=== PATIENT | female | born 1990 | race Caucasian/White ===

== ENCOUNTER → 2019-08-24 12:37 | Outpatient (BNVA) | payer MEDICAID, SELFPAY | PROVIDERS: Family Provider Family Medicine; Visit Provider Nurse Practitioner | DX: N30.01 Acute cystitis with hematuria (principal); R39.9 Unspecified symptoms and signs involving the genitourinary system | CPT/HCPCS: 81003; 87086 ==

== ENCOUNTER 2019-08-29 17:51 | Emergency (ER) | payer SELFPAY ==
[2019-08-29 17:52] VITALS: PULSE 87; RESP 17; O2SAT 98
[2019-08-29 17:57] VITALS: BP 122/93; PULSE 86; RESP 17; TEMP 36.8; O2SAT 98; BMI 24.7
--- NOTE | 2019-08-29 18:03 | W.ED.FEMALGU ---
HPI - Female Genitourinary General: Chief complaint: Urogenital-Female Stated complaint: Right side pain Time Seen by Provider: 08/29/19 17:57 Source: patient Mode of arrival: ambulatory Limitations: no limitations History of Present Illness: HPI Narrative: Patient is a 29-year-old female who presents to ED today with complaints of right flank pain. Patient states about 5-6 days ago she began noticing dysuria and went to urgent care where she was diagnosed with a UTI. Patient was placed on Macrobid but states she does not feel like she is improving. Patient has not been running fevers. She has not had any vomiting. She has noticed a small amount of blood on her tissue paper after wiping. MD elicited complaint: dysuria and flank pain Onset (ago): day(s) Female Urogenital Radiation: R Flank Consistency: constant Vaginal discharge: none Vaginal bleeding: none Urinary symptoms: Dysuria and Hematuria Exacerbating factors: urination Relieving factors: none Associated symptoms: Reports no associated symptoms; Deny abdominal pain, nausea or syncope Patient : No Review of Systems Const: Denies: fever, chills, body aches, change in appetite, change in weight or fatigue Card: Denies: chest pain, palpitations, irregular heart rhythm, edema, lightheadedness, syncope or pre-syncope Resp: Denies: shortness of breath, productive cough or chest congestion GI: Denies: abdominal pain, nausea, vomiting or diarrhea : Reports: flank pain, painful urination, blood in urine and other (R flank pain); Denies: difficulty urinating, urinary frequency, urinary urgency or urinary hesitancy Skin/Breast: Denies: rash PFS ED PFSH: Social History (Updated 08/24/19 @ 12:39 by Marie Lowe LPN) Smoking and tobacco status: current every day smoker Physical Exam Const: COMMON NORMALS: no apparent distress, average body habitus, oriented x3, no limitations, healthy appearing, alert and well nourished Resp: COMMON NORMALS: normal respiratory effort and clear to auscultation bilaterally AUSCULTATION: clear to auscultation bilaterally Cardio: COMMON NORMALS: regular rate and regular rhythm RATE: regular rate RHYTHM: regular rhythm GI: COMMON NORMALS: normal to inspection, nondistended, normoactive bowel sounds, soft to palpation, non-tender, no hepatosplenomegaly and no masses PALPATION: Yes soft and Yes no hepatosplenomegaly : BLADDER/KIDNEY EXAM: Yes CVA tenderness on the right Back/Pelvis: GENERAL BACK: Yes CVA tenderness Extremity: COMMON NORMALS: normal to inspection Neuro: COMMON NORMALS: oriented x3 SENSORIUM/ORIENTATION: Yes alert Skin: COMMON NORMALS: no rashes or lesions noted GENERAL SKIN EXAM: no rashes or lesions noted Course Vital Signs: Vital signs: Vital Signs Temperature 98.2 F 08/29/19 17:57 Pulse Rate 86 08/29/19 17:57 Respiratory Rate 17 08/29/19 17:57 Blood Pressure 122/93 08/29/19 17:57 Pulse Oximetry 98 08/29/19 17:57 MDM - Female MDM Narrative: Medical decision making narrative: Patient with a right-sided pyelonephritis. Her vitals are completely stable. She is able to hold down medications and therefore can be treated as an outpatient. LFTs were mildly elevated however patient tells me she does have a history of hepatitis C. She has absolutely no right upper quadrant abdominal pain. We will switch patient's antibiotic to ciprofloxacin. She was given IM Rocephin prior to discharge. Strict return to ED precautions given. Lab Data: Labs: Lab Results 08/29/19 08/29/19 08/29/19 Range/Units 18:06 18:17 18:17 WBC 11.4 H (4.0-10.0) 10^3/ uL RBC 4.56 (4.1-5.3) 10^6/u L Hgb 13.1 (11.5-15.3) g/dL Hct 40.0 (37.0-47.0) % MCV 87.7 (81-99) fL MCH 28.7 (28.0-34.0) pg MCHC 32.8 (30.0-36.0) g/dL RDW 12.6 (12.1-15.1) % Plt Count 181 (130-400) 10^3/c mm MPV 10.4 (7.4-10.4) fL Neut % (Auto) 76.8 % Lymph % (Auto) 16.1 % [place] % (Auto) 5.2 % Eos % (Auto) 1.4 % Baso % (Auto) 0.2 % Neut # (Auto) 8.8 H (1.8-7.7) 10^3/u L Lymph # (Auto) 1.8 (0.8-4.8) 10^3/u L [place] # (Auto) 0.6 (0.2-0.9) 10^3/u L Eos # (Auto) 0.2 (0.0-0.8) 10^3/u L Baso # (Auto) 0.0 (0.0-0.1) 10^3/u L Nucleated RBC % (a uto) 0 % Nucleated RBCs # 0.0 /100WBC Sodium 138 (136-145) mmol/L Potassium 3.8 (3.5-5.1) mmol/L Chloride 102 (98-107) mmol/L Carbon Dioxide 24 (22-29) mmol/L Anion Gap 15.8 (5-19) BUN 13 (6-20) mg/dL Creatinine 0.8 (0.5-0.9) mg/dL GFR Calculation 85.4 L (90-130) mL/min Glucose 138 H (65-115) mg/dL Calcium 9.5 (8.5-10.5) mg/dL Total Bilirubin 0.2 (0.15-1.2) mg/dL AST 40 H (0-32) U/L ALT 87 H (0-33) U/L Alkaline Phosphata se 150 H (35-105) IU/L Total Protein 7.4 (6.6-8.7) g/dL Albumin 4.1 (3.5-5.2) g/dL Globulin 3.3 (1.3-4.6) g/dL HCG, Qual (Negative) Urine Color Yellow (Yellow) Urine Appearance Cloudy (CLEAR) Urine pH 5.0 (5-7) Ur Specific Gravit y 1.020 (1.005-1.030) Urine Protein 2+ H (Negative) Urine Glucose (UA) Norm (Normal) Urine Ketones Negative (Negative) Urine Blood 3+ H (Negative) Urine Nitrate Negative (Negative) Urine Bilirubin Neg (NEGATIVE) Urine Urobilinogen Norm (Negative) mg/dL Ur Leukocyte Amadna ase 2+ H (Negative) Urine RBC 40-50 H (0-2) /hpf Urine WBC >100 H (0-5) /hpf Ur Squamous Epith Cells 0-4 H (0-5) Urine Bacteria 2+ H (NONE) 08/29/19 Range/Units 18:17 WBC (4.0-10.0) 10^3/ uL RBC (4.1-5.3) 10^6/u L Hgb (11.5-15.3) g/dL Hct (37.0-47.0) % MCV (81-99) fL MCH (28.0-34.0) pg MCHC (30.0-36.0) g/dL RDW (12.1-15.1) % Plt Count (130-400) 10^3/c mm MPV (7.4-10.4) fL Neut % (Auto) % Lymph % (Auto) % [place] % (Auto) % Eos % (Auto) % Baso % (Auto) % Neut # (Auto) (1.8-7.7) 10^3/u L Lymph # (Auto) (0.8-4.8) 10^3/u L [place] # (Auto) (0.2-0.9) 10^3/u L Eos # (Auto) (0.0-0.8) 10^3/u L Baso # (Auto) (0.0-0.1) 10^3/u L Nucleated RBC % (a uto) % Nucleated RBCs # /100WBC Sodium (136-145) mmol/L Potassium (3.5-5.1) mmol/L Chloride (98-107) mmol/L Carbon Dioxide (22-29) mmol/L Anion Gap (5-19) BUN (6-20) mg/dL Creatinine (0.5-0.9) mg/dL GFR Calculation (90-130) mL/min Glucose (65-115) mg/dL Calcium (8.5-10.5) mg/dL Total Bilirubin (0.15-1.2) mg/dL AST (0-32) U/L ALT (0-33) U/L Alkaline Phosphata se (35-105) IU/L Total Protein (6.6-8.7) g/dL Albumin (3.5-5.2) g/dL Globulin (1.3-4.6) g/dL HCG, Qual Negative (Negative) Urine Color (Yellow) Urine Appearance (CLEAR) Urine pH (5-7) Ur Specific Gravit y (1.005-1.030) Urine Protein (Negative) Urine Glucose (UA) (Normal) Urine Ketones (Negative) Urine Blood (Negative) Urine Nitrate (Negative) Urine Bilirubin (NEGATIVE) Urine Urobilinogen (Negative) mg/dL Ur Leukocyte Amanda ase (Negative) Urine RBC (0-2) /hpf Urine WBC (0-5) /hpf Ur Squamous Epith Cells (0-5) Urine Bacteria (NONE) Discharge Plan Discharge Patient Disposition: Home, Self-Care Clinical Impression: Pyelonephritis Condition: Stable Prescriptions: New ciprofloxacin HCl 500 mg tablet 500 mg PO BID 7 Days Qty: 14 RF: 0 Discontinued nitrofurantoin monohyd/m-cryst [Macrobid] 100 mg capsule 100 mg PO BID 7 Days Qty: 14 RF: 0 No Action phenazopyridine [Azo Urinary Pain Relief] 95 mg tablet 95 mg PO TID PRN (Reason: unknown) RF: 0 Discharge Orders: Discharge Order (Routine); Ordered 08/29/19 Ordered By: Puja Hernadez Referrals: Annette Negron MD [Family Provider] - Discharge Diet: Usual diet Discharge Activity: Increase activity as tolerated Activity Restrictions/Additional Instructions: As discussed you need to return to the emergency department for worsening pain, fevers greater than 100.4, vomiting/inability to keep down your antibiotics, or any other concerns you may have. Coding Level of Care Code ED [employer] Blank[employer] Machine Feeder for Jaxon Armendariz
[2019-08-29 18:28] LABS: Basophils % 0.2 %; Eosinophils # 0.2 10^3/uL (0.0-0.8); Eosinophils % 1.4 %; Hemoglobin 13.1 g/dL (11.5-15.3); Lymphocytes # 1.8 10^3/uL (0.8-4.8); Lymphocytes % 16.1 %; Mean Corpuscular HGB Conc 32.8 g/dL (30.0-36.0); Mean Corpuscular Hemoglobin 28.7 pg (28.0-34.0); Mean Corpuscular Volume 87.7 fL (81-99); Mean Platelet Volume 10.4 fL (7.4-10.4); Monocytes # 0.6 10^3/uL (0.2-0.9); Monocytes % 5.2 %; Neutrophils # 8.8 10^3/uL (1.8-7.7); Neutrophils % 76.8 %; Nucleated Red Blood Cells % 0 %; Platelet Count 181 10^3/cmm (130-400); Red Blood Count 4.56 10^6/uL (4.1-5.3); Red Cell Distribution Width 12.6 % (12.1-15.1); White Blood Count 11.4 10^3/uL (4.0-10.0)
[2019-08-29 18:48] LABS: Add Urine Microscopic? YES; Bilirubin Urine Neg (NEGATIVE); Blood Urine 3+ (Negative); Glucose Urine UA Norm (Normal); Ketones Urine Negative (Negative); Leukocyte Esterase Urine 2+ (Negative); Nitrate Urine Negative (Negative); Protein Urine 2+ (Negative); Urine Appearance Cloudy (CLEAR); Urine Color Yellow (Yellow); Urobilinogen Urine Norm (Negative)
[2019-08-29 18:51] LABS: Alanine Aminotransferase 87 U/L (0-33); Albumin Level 4.1 g/dL (3.5-5.2); Alkaline Phosphatase 150 IU/L (35-105); Anion Gap 15.8 (5-19); Aspartate Amino Transferase 40 U/L (0-32); Blood Urea Nitrogen 13 mg/dL (6-20); Calcium 9.5 mg/dL (8.5-10.5); Carbon Dioxide 24 mmol/L (22-29); Chloride 102 mmol/L (98-107); Globulin 3.3 g/dL (1.3-4.6); Glomerular Filtration Rate 85.4 mL/min (90-130); Glucose 138 mg/dL (65-115); Potassium 3.8 mmol/L (3.5-5.1); Sodium 138 mmol/L (136-145); Total Bilirubin 0.2 mg/dL (0.15-1.2); Total Protein 7.4 g/dL (6.6-8.7)
[2019-08-29 18:58] LABS: HCG, Serum Qual Negative (Negative)
[2019-08-29 19:07] LABS: Add Urine Culture? Yes; Bacteria Urine 2+; RBC Urine 40-50 /hpf (0-2); Squamous Epithelial Cell Urine 0-4 (0-5); WBC Urine >100 /hpf (0-5)
--- NOTE | 2019-08-29 19:31 | PC.NURSE ---
Introduced self to patient and initiated vital signs. Patient presents A&O x 4. NAD, ABCs intact, MAEW and agreeable to treatment. Respirations are even and unlabored. Pt states medications taken before coming to ER was macrobid. Pt states that the chief complaint for the ER visit today is due to right side flank pain which she rates as 5/10. Pt denies any vision disturbances or lightheadedness. Bed left in lowest position in semi-fowlers with side rails up. Reassured patient of needs and will continue to monitor.
[2019-08-29] MEDS: cefTRIAXone 1,000 mg SDV 1000 MG IM (20:13)
[2019-08-29 20:20] VITALS: BP 101/63; PULSE 85; RESP 16; O2SAT 97
== END 2019-08-29 20:22 | disposition home or self-care (01) ==
PROVIDERS: Emergency Provider Physician Assistant; Family Provider Family Medicine
DX: N12 Tubulo-interstitial nephritis, not specified as acute or chronic (principal); B96.20 Unspecified Escherichia coli [E. coli] as the cause of diseases classified elsewhere; F17.210 Nicotine dependence, cigarettes, uncomplicated; R79.89 Other specified abnormal findings of blood chemistry; Z86.19 Personal history of other infectious and parasitic diseases
CPT/HCPCS: 12345; 80053; 81001; 84703; 85025; 87077; 87086; 87186; 96372; 99281; 99282; 99283; J0696

== ENCOUNTER 2020-03-14 14:58 | Emergency (ER) | payer SELFPAY ==
[2020-03-14 15:06] VITALS: BP 106/73; PULSE 106; RESP 17; TEMP 36.4; O2SAT 97; BMI 24.0
[2020-03-14 15:35] LABS: Bilirubin Urine Neg (Negative); Blood Urine 3+ (Negative); Glucose Urine UA Norm (Normal); Ketones Urine 1+ (Negative); Nitrate Urine Positive (Negative); Protein Urine 1+ (Negative); Specific Gravity, Urine 1.015 (1.005-1.030); Urine Appearance Cloudy (CLEAR); Urine Color Dark Yellow (Yellow); pH Urine 5 (5-7)
[2020-03-14 15:36] LABS: Add Urine Culture? Yes; Bacteria Urine 3+ /hpf; Leukocyte Esterase Urine 2+ (Negative); Urobilinogen Urine 4 mg/dL (Negative); WBC Urine TOO NUMEROUS TO CNT /hpf (0-5)
[2020-03-14 15:40] LABS: Basophils % 0.1 %; Hematocrit 39.7 % (37.0-47.0); Hemoglobin 13.2 g/dL (11.5-15.3); Lymphocytes # 0.9 10^3/uL (0.8-4.8); Lymphocytes % 8.7 %; Mean Corpuscular HGB Conc 33.2 g/dL (30.0-36.0); Mean Corpuscular Hemoglobin 29.1 pg (28.0-34.0); Mean Corpuscular Volume 87.6 fL (81-99); Mean Platelet Volume 10.3 fL (7.4-10.4); Monocytes # 0.9 10^3/uL (0.2-0.9); Neutrophils % 82.8 %; Nucleated Red Blood Cells % 0 %; Platelet Count 158 10^3/cmm (130-400); Red Blood Count 4.53 10^6/uL (4.1-5.3); Red Cell Distribution Width 12.4 % (12.1-15.1); White Blood Count 10.7 10^3/uL (4.0-10.0)
[2020-03-14 15:50] LABS: HCG, Serum Qual Negative (Negative)
[2020-03-14 16:02] LABS: Alanine Aminotransferase 26 U/L (0-33); Albumin Level 4.3 g/dL (3.5-5.2); Alkaline Phosphatase 103 IU/L (35-105); Anion Gap 12.3 (5-19); Aspartate Amino Transferase 14 U/L (0-32); Blood Urea Nitrogen 9 mg/dL (6-20); Calcium 9.2 mg/dL (8.5-10.5); Carbon Dioxide 24 mmol/L (22-29); Chloride 100 mmol/L (98-107); Globulin 3.2 g/dL (1.3-4.6); Glomerular Filtration Rate 74.6 mL/min (90-130); Glucose 129 mg/dL (65-115); Lipase 18 U/L (13-60); Osmolality Calculated 276 mOsm/kg (285-295); Potassium 3.3 mmol/L (3.5-5.1); Sodium 133 mmol/L (136-145); Total Bilirubin 0.8 mg/dL (0.15-1.2); Total Protein 7.5 g/dL (6.6-8.7)
--- NOTE | 2020-03-14 16:39 | CTR_ITS ---
PROCEDURE INFORMATION: Exam: CT Abdomen And Pelvis Without Contrast Exam date and time: 03/14/2020 5:39 PM Age: 29 years old Clinical indication: Abdominal pain; Right; Prior surgery; Surgery date: 6+ months; Surgery type: C-sect; Patient HX: C/O R flank pain; Additional info: Right flank pain TECHNIQUE: Imaging protocol: Computed tomography of the abdomen and pelvis without contrast. Radiation optimization: All CT scans at this facility use at least one of these dose optimization techniques: automated exposure control; mA and/or kV adjustment per patient size (includes targeted exams where dose is matched to clinical indication); or iterative reconstruction. COMPARISON: [place] Pelvis Lmt [place] Male [id number] 01/17/2019 8:40 PM RADIATION DOSE METRICS: Total DLP (mGy-cm): 1021.1 FINDINGS: Lungs: Limited assessment lung bases without visible evidence of active or acute cardiopulmonary process. Minimal dependent atelectasis. Liver: Unremarkable. No mass. Gallbladder and bile ducts: Normal. No calcified stones. No ductal dilation. Pancreas: Normal. No ductal dilation. Spleen: Splenomegaly. Adrenals: Normal. No mass. Kidneys and ureters: Right ureterovesical junction lithiasis measuring 6.6 mm x 3.8 mm x 4.8 mm. Resulting severe right hydronephrosis and hydroureter to the high grade obstructing stone. Tiny foci of nonobstructing calyceal nephrolithiasis remains superior pole right kidney all under 3 mm. Rare tiny foci of nonobstructing calyceal nephrolithiasis left kidney superior pole all under 3 mm. Evidence of bilateral mild nephrocalcinosis. No left hydronephrosis or ureterolithiasis. Stomach and bowel: Multiple surgical clips at the cecal tip presumed status post appendectomy. Nonobstructive bowel pattern. No visible diverticulosis coli or diverticulitis. No visible significant reactive or adynamic ileus. Appendix: Status post appendectomy. Intraperitoneal space: Unremarkable. No free air. No significant fluid collection. Vasculature: Unremarkable. No abdominal aortic aneurysm. Lymph nodes: Unremarkable. No enlarged lymph nodes. Bladder: Unremarkable as visualized. Reproductive: Unremarkable as visualized. Bones/joints: No visible evidence of active or acute osseous pathology. Soft tissues: Unremarkable. CT/CT kidney stone [id number] IMPRESSION: 1. Right ureterovesical junction lithiasis measuring 6.6 mm x 3.8 mm x 4.8 mm. Resulting severe right hydronephrosis and hydroureter to the high grade obstructing stone. 2. Bilateral nonobstructing calyceal nephrolithiasis. 3. Mild bilateral nephrocalcinosis. 4. Splenomegaly. Radiation Dose CTDIVOL = (mGy): DLP = 1021.1 (mGy-cm)
[2020-03-14 17:03] VITALS: BP 102/60; PULSE 102; RESP 20; O2SAT 97
--- NOTE | 2020-03-14 17:09 | ED_ITS ---
Documented by User: Erin Jackson MD 03/16/20 13:17 HPI - Female Genitourinary General: Chief complaint: Urogenital-Female Stated complaint: kidney pain Time Seen by Provider: 03/14/20 16:33 History of Present Illness: HPI Narrative: This patient is a 29-year-old female who comes in today with concerns about her kidneys. She is having right flank pain that is been going on pretty constantly for a few days. She has been having UTI symptoms, including frequency and urgency as well as dysuria for about a month.. She has not had a fever that she is documented but she does feel like she has had sweats and chills. She has had some nausea and vomiting. She said the vomiting she thinks is because of the pain. She has not really been able to eat with no appetite. She denies any upper respiratory type symptoms. She has never had a kidney stone or kidney infection. She has had bladder infections before. MD elicited complaint: dysuria, UTI , back pain and flank pain Pertinent past history: recurrent UTIs (Not frequent) Onset (ago): day(s) (A few) Severity: severe Female Urogenital Radiation: R Flank Quality of pain: cramping and sharp Consistency: constant Associated symptoms: Reports nausea; Deny abdominal pain or headache(s) Review of Systems General: Reports: 10 or more systems reviewed and unremarkable except in HPI and below Const: Denies: fever(s), chills, fatigue or malaise Eyes: Denies: change in vision ENMT: Denies: odynophagia Card: Denies: chest pain or swelling of feet/ankles Resp: Denies: dyspnea, productive cough or non-productive cough GI: Reports: nausea and vomiting; Denies: abdominal pain : Reports: dysuria, urinary frequency and urinary urgency; Denies: flank pain or difficulty voiding Musc: Denies: neck pain or back pain Skin/Breast: Denies: rash Neuro: Denies: headache(s), numbness in extremities or weakness in extremities Jovany/Lymph: Denies: easy bruising or easy bleeding [facility] ED PFSH: Social History (Updated 08/24/19 @ 12:39 by Marie Lowe LPN) Smoking and tobacco status: current every day smoker Physical Exam Const: COMMON NORMALS: patient oriented x3, no limitations and alert GENERAL APPEARANCE: cooperative HENMT: HEAD & SCALP: normal to inspection FACE & SINUS: normal facial exam Eye: GENERAL EYE: appearance normal, both eyes and all related structures Neck/C-Spine: COMMON NORMALS: supple, no meningeal signs and no JVD Chest: COMMONS NORMALS: normal inspection of the chest Resp: COMMON NORMALS: normal respiratory effort, No use of accessory muscles and clear to auscultation bilaterally AUSCULTATION: clear to auscultation bilaterally Cardio: COMMON NORMALS: no JVD, regular rate, regular rhythm and No murmurs present (Cardio) RATE: regular rate RHYTHM: regular rhythm GI: COMMON NORMALS: Normal to inspection, nondistended, normoactive bowel sounds present and Soft to palpation INSPECTION: Yes normal to inspection AUSCULTATION: Yes normoactive bowel sounds PALPATION: Yes Soft to palpation and Yes Tenderness to palpation present (GI) Details: RLQ (Mild) : BLADDER/KIDNEY EXAM: Yes CVA tenderness on the right Back/Pelvis: COMMON NORMALS: thoracic and lumbar spine normal to inspection GENERAL BACK: Yes CVA tenderness Extremity: COMMON NORMALS: normal to inspection Neuro: COMMON NORMALS: patient oriented x3, moves all extremities, no focal motor deficits and no sensory deficits noted SENSORIUM/ORIENTATION: Yes alert MENINGEAL SIGNS: Yes no meningeal signs Psych: COMMON NORMALS: mental status grossly normal, cooperative and normal affect Skin: COMMON NORMALS: no rashes or lesions noted and turgor normal GENERAL SKIN EXAM: no rashes or lesions noted and turgor normal Course Vital Signs: Vital signs: Vital Signs Temperature 99.4 F 03/15/20 00:20 Pulse Rate 100 03/15/20 00:20 Respiratory Rate 18 03/15/20 00:20 Blood Pressure 104/60 03/14/20 23:47 Pulse Oximetry 95 03/14/20 23:47 MDM - Female Lab Data: Labs: Lab Results 03/14/20 03/14/20 03/14/20 Range/Units 15:17 15:32 15:32 WBC 10.7 H (4.0-10.0) 10^3/ uL RBC 4.53 (4.1-5.3) 10^6/u L Hgb 13.2 (11.5-15.3) g/dL Hct 39.7 (37.0-47.0) % MCV 87.6 (81-99) fL MCH 29.1 (28.0-34.0) pg MCHC 33.2 (30.0-36.0) g/dL RDW 12.4 (12.1-15.1) % Plt Count 158 (130-400) 10^3/c mm MPV 10.3 (7.4-10.4) fL Neut % (Auto) 82.8 % Lymph % (Auto) 8.7 % Price % (Auto) 8.0 % Eos % (Auto) 0.0 % Baso % (Auto) 0.1 % Neut # (Auto) 8.90 H (1.8-7.7) 10^3/u L Lymph # (Auto) 0.9 (0.8-4.8) 10^3/u L Price # (Auto) 0.9 (0.2-0.9) 10^3/u L Eos # (Auto) 0.0 (0.0-0.8) 10^3/u L Baso # (Auto) 0.0 (0.0-0.1) 10^3/u L Nucleated RBC % (a uto) 0 % Nucleated RBCs # 0.0 /100WBC Sodium 133 L (136-145) mmol/L Potassium 3.3 L (3.5-5.1) mmol/L Chloride 100 (98-107) mmol/L Carbon Dioxide 24 (22-29) mmol/L Anion Gap 12.3 (5-19) BUN 9 (6-20) mg/dL Creatinine 0.9 (0.5-0.9) mg/dL GFR Calculation 74.6 L (90-130) mL/min Glucose 129 H (65-115) mg/dL Calculated Osmolal ity 276 L (285-295) mOsm/k g Calcium 9.2 (8.5-10.5) mg/dL Total Bilirubin 0.8 (0.15-1.2) mg/dL AST 14 (0-32) U/L ALT 26 (0-33) U/L Alkaline Phosphata se 103 (35-105) IU/L Total Protein 7.5 (6.6-8.7) g/dL Albumin 4.3 (3.5-5.2) g/dL Globulin 3.2 (1.3-4.6) g/dL Lipase 18 (13-60) U/L HCG, Qual (Negative) Urine Color Dark yellow (Yellow) Urine Appearance Cloudy (CLEAR) Urine pH 5 (5-7) Ur Specific Gravit y 1.015 (1.005-1.030) Urine Protein 1+ H (Negative) Urine Glucose (UA) Norm (Normal) Urine Ketones 1+ H (Negative) Urine Blood 3+ H (Negative) Urine Nitrate Positive H (Negative) Urine Bilirubin Neg (Negative) Urine Urobilinogen 4 H (Negative) mg/dL Ur Leukocyte Amanda ase 2+ H (Negative) Urine RBC 10-15 H (0-2) /hpf Urine WBC Too numerous to c nt H (0-5) /hpf Ur Squamous Epith Cells None (0-5) /hpf Amorphous Sediment Not Reportable Urine Bacteria 3+ H (NONE) /hpf 03/14/20 Range/Units 15:32 WBC (4.0-10.0) 10^3/ uL RBC (4.1-5.3) 10^6/u L Hgb (11.5-15.3) g/dL Hct (37.0-47.0) % MCV (81-99) fL MCH (28.0-34.0) pg MCHC (30.0-36.0) g/dL RDW (12.1-15.1) % Plt Count (130-400) 10^3/c mm MPV (7.4-10.4) fL Neut % (Auto) % Lymph % (Auto) % Price % (Auto) % Eos % (Auto) % Baso % (Auto) % Neut # (Auto) (1.8-7.7) 10^3/u L Lymph # (Auto) (0.8-4.8) 10^3/u L Price # (Auto) (0.2-0.9) 10^3/u L Eos # (Auto) (0.0-0.8) 10^3/u L Baso # (Auto) (0.0-0.1) 10^3/u L Nucleated RBC % (a uto) % Nucleated RBCs # /100WBC Sodium (136-145) mmol/L Potassium (3.5-5.1) mmol/L Chloride (98-107) mmol/L Carbon Dioxide (22-29) mmol/L Anion Gap (5-19) BUN (6-20) mg/dL Creatinine (0.5-0.9) mg/dL GFR Calculation (90-130) mL/min Glucose (65-115) mg/dL Calculated Osmolal ity (285-295) mOsm/k g Calcium (8.5-10.5) mg/dL Total Bilirubin (0.15-1.2) mg/dL AST (0-32) U/L ALT (0-33) U/L Alkaline Phosphata se (35-105) IU/L Total Protein (6.6-8.7) g/dL Albumin (3.5-5.2) g/dL Globulin (1.3-4.6) g/dL Lipase (13-60) U/L HCG, Qual Negative (Negative) Urine Color (Yellow) Urine Appearance (CLEAR) Urine pH (5-7) Ur Specific Gravit y (1.005-1.030) Urine Protein (Negative) Urine Glucose (UA) (Normal) Urine Ketones (Negative) Urine Blood (Negative) Urine Nitrate (Negative) Urine Bilirubin (Negative) Urine Urobilinogen (Negative) mg/dL Ur Leukocyte Amanda ase (Negative) Urine RBC (0-2) /hpf Urine WBC (0-5) /hpf Ur Squamous Epith Cells (0-5) /hpf Amorphous Sediment Urine Bacteria (NONE) /hpf Discharge Plan Discharge Patient Disposition: Xfer Other Referrals: Annette Negron MD [Primary Care Provider] - Discharge Date/Time: 03/15/20 00:34 Coding Level of Care Code ED Bioinformatics Technician for Chg Fwd Exam Comprehensive Documented by User: Alyssia Linton MD 03/14/20 20:39 HPI - Female Genitourinary General: Chief complaint: Urogenital-Female Stated complaint: kidney pain Time Seen by Provider: 03/14/20 16:33 PFSH ED PFSH: Social History (Updated 08/24/19 @ 12:39 by Marie Lowe LPN) Smoking and tobacco status: current every day smoker Course Vital Signs: Vital signs: Vital Signs Temperature 99.4 F 03/15/20 00:20 Pulse Rate 100 03/15/20 00:20 Respiratory Rate 18 03/15/20 00:20 Blood Pressure 104/60 03/14/20 23:47 Pulse Oximetry 95 03/14/20 23:47 MDM - Female MDM Narrative: Medical decision making narrative: Patient presents here with flank pain was found to have a large kidney stone that is also infected. She has an obvious UTI. She has market hydro-. Spoke to hospitalist roxy Tellez and will transfer there for higher level of care as we do not have urology at this time. Lab Data: Labs: Lab Results 03/14/20 03/14/20 03/14/20 Range/Units 15:17 15:32 15:32 WBC 10.7 H (4.0-10.0) 10^3/ uL RBC 4.53 (4.1-5.3) 10^6/u L Hgb 13.2 (11.5-15.3) g/dL Hct 39.7 (37.0-47.0) % MCV 87.6 (81-99) fL MCH 29.1 (28.0-34.0) pg MCHC 33.2 (30.0-36.0) g/dL RDW 12.4 (12.1-15.1) % Plt Count 158 (130-400) 10^3/c mm MPV 10.3 (7.4-10.4) fL Neut % (Auto) 82.8 % Lymph % (Auto) 8.7 % Price % (Auto) 8.0 % Eos % (Auto) 0.0 % Baso % (Auto) 0.1 % Neut # (Auto) 8.90 H (1.8-7.7) 10^3/u L Lymph # (Auto) 0.9 (0.8-4.8) 10^3/u L Price # (Auto) 0.9 (0.2-0.9) 10^3/u L Eos # (Auto) 0.0 (0.0-0.8) 10^3/u L Baso # (Auto) 0.0 (0.0-0.1) 10^3/u L Nucleated RBC % (a uto) 0 % Nucleated RBCs # 0.0 /100WBC Sodium 133 L (136-145) mmol/L Potassium 3.3 L (3.5-5.1) mmol/L Chloride 100 (98-107) mmol/L Carbon Dioxide 24 (22-29) mmol/L Anion Gap 12.3 (5-19) BUN 9 (6-20) mg/dL Creatinine 0.9 (0.5-0.9) mg/dL GFR Calculation 74.6 L (90-130) mL/min Glucose 129 H (65-115) mg/dL Calculated Osmolal ity 276 L (285-295) mOsm/k g Calcium 9.2 (8.5-10.5) mg/dL Total Bilirubin 0.8 (0.15-1.2) mg/dL AST 14 (0-32) U/L ALT 26 (0-33) U/L Alkaline Phosphata se 103 (35-105) IU/L Total Protein 7.5 (6.6-8.7) g/dL Albumin 4.3 (3.5-5.2) g/dL Globulin 3.2 (1.3-4.6) g/dL Lipase 18 (13-60) U/L HCG, Qual (Negative) Urine Color Dark yellow (Yellow) Urine Appearance Cloudy (CLEAR) Urine pH 5 (5-7) Ur Specific Gravit y 1.015 (1.005-1.030) Urine Protein 1+ H (Negative) Urine Glucose (UA) Norm (Normal) Urine Ketones 1+ H (Negative) Urine Blood 3+ H (Negative) Urine Nitrate Positive H (Negative) Urine Bilirubin Neg (Negative) Urine Urobilinogen 4 H (Negative) mg/dL Ur Leukocyte Amanda ase 2+ H (Negative) Urine RBC 10-15 H (0-2) /hpf Urine WBC Too numerous to c nt H (0-5) /hpf Ur Squamous Epith Cells None (0-5) /hpf Amorphous Sediment Not Reportable Urine Bacteria 3+ H (NONE) /hpf 03/14/20 Range/Units 15:32 WBC (4.0-10.0) 10^3/ uL RBC (4.1-5.3) 10^6/u L Hgb (11.5-15.3) g/dL Hct (37.0-47.0) % MCV (81-99) fL MCH (28.0-34.0) pg MCHC (30.0-36.0) g/dL RDW (12.1-15.1) % Plt Count (130-400) 10^3/c mm MPV (7.4-10.4) fL Neut % (Auto) % Lymph % (Auto) % Price % (Auto) % Eos % (Auto) % Baso % (Auto) % Neut # (Auto) (1.8-7.7) 10^3/u L Lymph # (Auto) (0.8-4.8) 10^3/u L Price # (Auto) (0.2-0.9) 10^3/u L Eos # (Auto) (0.0-0.8) 10^3/u L Baso # (Auto) (0.0-0.1) 10^3/u L Nucleated RBC % (a uto) % Nucleated RBCs # /100WBC Sodium (136-145) mmol/L Potassium (3.5-5.1) mmol/L Chloride (98-107) mmol/L Carbon Dioxide (22-29) mmol/L Anion Gap (5-19) BUN (6-20) mg/dL Creatinine (0.5-0.9) mg/dL GFR Calculation (90-130) mL/min Glucose (65-115) mg/dL Calculated Osmolal ity (285-295) mOsm/k g Calcium (8.5-10.5) mg/dL Total Bilirubin (0.15-1.2) mg/dL AST (0-32) U/L ALT (0-33) U/L Alkaline Phosphata se (35-105) IU/L Total Protein (6.6-8.7) g/dL Albumin (3.5-5.2) g/dL Globulin (1.3-4.6) g/dL Lipase (13-60) U/L HCG, Qual Negative (Negative) Urine Color (Yellow) Urine Appearance (CLEAR) Urine pH (5-7) Ur Specific Gravit y (1.005-1.030) Urine Protein (Negative) Urine Glucose (UA) (Normal) Urine Ketones (Negative) Urine Blood (Negative) Urine Nitrate (Negative) Urine Bilirubin (Negative) Urine Urobilinogen (Negative) mg/dL Ur Leukocyte Amanda ase (Negative) Urine RBC (0-2) /hpf Urine WBC (0-5) /hpf Ur Squamous Epith Cells (0-5) /hpf Amorphous Sediment Urine Bacteria (NONE) /hpf Imaging Data: CT Abd/Pel: Radiologist's impression: [address] [address] [address] Scan Report Signed with Addenda Patient: Polina Majano Unit #: [id number] : 1990 Age/Sex: 29 / F ADM Date: 03/14/20 Loc: ER Room/Bed: Attending Dr: Ordering Provider/Ordering MD: Erin Jackson MD Date of Service: 03/14/20 Procedure(s): CT kidney stone 45286 Accession Number(s): [id number] Report Number: [id number]/CT kidney stone [id number] THIS REPORT CONTAINS FINDINGS THAT MAY BE CRITICAL TO PATIENT CARE. The findings were verbally communicated via telephone conference with Erin Jackson at 6:30 PM CDT on 03/14/2020. The findings were acknowledged and understood. Radiation Dose CTDIVOL = (mGy): DLP = 1021.1 (mGy-cm) Addendum Dictated By: Chris Arroyo Addendum Signed By: Chris Arroyo Signed Date/Time: 03/14/20 183 1 Addendum Cosigned By: PROCEDURE INFORMATION: Exam: CT Abdomen And Pelvis Without Contrast Exam date and time: 03/14/2020 5:39 PM Age: 29 years old Clinical indication: Abdominal pain; Right; Prior surgery; Surgery date: 6+ months; Surgery type: C-sect; Patient HX: C/O R flank pain; Additional info: Right flank pain TECHNIQUE: Imaging protocol: Computed tomography of the abdomen and pelvis without contrast. Radiation optimization: All CT scans at this facility use at least one of these dose optimization techniques: automated exposure control; mA and/or kV adjustment per patient size (includes targeted exams where dose is matched to clinical indication); or iterative reconstruction. COMPARISON: US Pelvis Lmt or Male [id number] 01/17/2019 8:40 PM RADIATION DOSE METRICS: Total DLP (mGy-cm): 1021.1 FINDINGS: Lungs: Limited assessment lung bases without visible evidence of active or acute cardiopulmonary process. Minimal dependent atelectasis. Liver: Unremarkable. No mass. Gallbladder and bile ducts: Normal. No calcified stones. No ductal dilation. Pancreas: Normal. No ductal dilation. Spleen: Splenomegaly. Adrenals: Normal. No mass. Kidneys and ureters: Right ureterovesical junction lithiasis measuring 6.6 mm x 3.8 mm x 4.8 mm. Resulting severe right hydronephrosis and hydroureter to the high grade obstructing stone. Tiny foci of nonobstructing calyceal nephrolithiasis remains superior pole right kidney all under 3 mm. Rare tiny foci of nonobstructing calyceal nephrolithiasis left kidney superior pole all under 3 mm. Evidence of bilateral mild nephrocalcinosis. No left hydronephrosis or ureterolithiasis. Stomach and bowel: Multiple surgical clips at the cecal tip presumed status post appendectomy. Nonobstructive bowel pattern. No visible diverticulosis coli or diverticulitis. No visible significant reactive or adynamic ileus. Appendix: Status post appendectomy. Intraperitoneal space: Unremarkable. No free air. No significant fluid collection. Vasculature: Unremarkable. No abdominal aortic aneurysm. Lymph nodes: Unremarkable. No enlarged lymph nodes. Bladder: Unremarkable as visualized. Reproductive: Unremarkable as visualized. Bones/joints: No visible evidence of active or acute osseous pathology. Soft tissues: Unremarkable. CT/CT kidney stone [id number] IMPRESSION: 1. Right ureterovesical junction lithiasis measuring 6.6 mm x 3.8 mm x 4.8 mm. Resulting severe right hydronephrosis and hydroureter to the high grade obstructing stone. 2. Bilateral nonobstructing calyceal nephrolithiasis. 3. Mild bilateral nephrocalcinosis. 4. Splenomegaly. Discharge Plan Discharge Patient Disposition: Xfer Other Referrals: Annette Negron MD [Primary Care Provider] - Discharge Date/Time: 03/15/20 00:34 Coding Level of Care Code ED Bioinformatics Technician for Chg Fwd Exam Comprehensive
[2020-03-14] MEDS: sodium chloride 0.9% 1,000 ML 999 ML IV (17:15)
[2020-03-14] MEDS: ketorolac 30 mg/mL INJ 15 MG IVP (17:15)
[2020-03-14] MEDS: ondansetron 2 mg/ML SDV 2 mL 4 MG IVP (17:17)
[2020-03-14] MEDS: cefTRIAXone 1,000 MG in sodium chloride 0.9% (plus) 50 ML 100 MG IV (17:22)
--- NOTE | 2020-03-14 19:07 | PC.NURSE ---
REPORT GIVEN TO JAMILAH MENENDEZ ASSUMED CARE.
[2020-03-14 19:14] VITALS: RESP 18
[2020-03-14] MEDS: HYDROmorphone 1 mg/mL INJ 1 mL IVP (19:14)
[2020-03-14 19:49] VITALS: BP 117/65; PULSE 92; RESP 16; O2SAT 98
--- NOTE | 2020-03-14 21:48 | PC.NURSE ---
This RN spoke with pt concerning expression of breastmilk. She is 14 month PP and does not regularly pump. We discussed hand expression to relieve any discomfort she may experience. She did state that she had been attempting to wean. This RN recommended that she continue to hand express and/or pump as she feels full. We discussed signs of clogged ducts and mastitis. We also discussed about her continue to communicate with physicians about the medications she will be on and their safety with as may want to return to on pts discharge to home.
--- NOTE | 2020-03-14 23:29 | PC.NURSE ---
Report called to Lilli @ [facility]
[2020-03-14 23:47] VITALS: BP 104/60; PULSE 103; RESP 16; O2SAT 95
[2020-03-15 00:19] VITALS: RESP 16
[2020-03-15] MEDS: HYDROmorphone 1 mg/mL INJ 1 mL IVP (00:19)
[2020-03-15 00:20] VITALS: PULSE 100; RESP 18; TEMP 37.4
[2020-03-15] MEDS: acetaminophen 325 mg Tablet 650 MG PO (00:28)
--- NOTE | 2020-03-15 00:29 | PC.NURSE ---
Pt report called to Reny @ 1910. EMS now here to transport
== END 2020-03-15 00:34 | disposition other institution (70) ==
PROVIDERS: Emergency Medicine; Emergency Provider Emergency Medicine; PCP Family Medicine
DX: R10.9 Unspecified abdominal pain (principal); F17.210 Nicotine dependence, cigarettes, uncomplicated
CPT/HCPCS: 12345; 36415; 74176; 80053; 81001; 83690; 84703; 85025; 87077; 87086; 87186; 96365; 96375; 99283; 99285; J0696; J1170; J1885; J2405; J7030

== ENCOUNTER → 2021-04-13 10:22 | Outpatient (BNVA) | payer MEDICAID, SELFPAY | PROVIDERS: PCP Family Medicine; Visit Provider Registered Nurse Neonatal Intensive Care | DX: N39.0 Urinary tract infection, site not specified (principal) | CPT/HCPCS: 81000 ==